=== PATIENT | male | born 1980 | race Two or more races ===

== ENCOUNTER 2016-11-05 13:24 | Emergency (ER) | payer MEDICAID ==
[~2016-11-05] VITALS: Ht 182.9 cm; Wt 106.6 kg
[2016-11-05 15:19] LABS: Albumin 3.8 g/dL (3.4-5.0); BUN/Creatinine Ratio 22.2; Calcium 8.7 mg/dL (8.5-10.1); Potassium 4.1 mmol/L (3.5-5.1)
[2016-11-05 15:22] LABS: Bilirubin, Total 0.3 mg/dL (0.2-1.0); Total Protein 7.3 g/dL (6.4-8.2)
[2016-11-05 15:33] LABS: Basophils % (auto) 0.3 % (0.0-2.0); Eosinophils # (auto) 0.1 uL; Eosinophils % (auto) 0.9 % (0.0-7.0); Lymphocytes # (auto) 1.9 uL; Lymphocytes % (auto) 16.3 % (10.0-50.0); Monocytes # (auto) 0.8 uL; Monocytes % (auto) 6.5 % (0.0-12.0); Neutrophils # (auto) 8.8 uL; White Blood Cell 11.6 10^3/uL (4.4-10.8)
[2016-11-05 15:34] LABS: Basophils # (auto) 0 uL; Hematocrit 43.4 % (41.0-53.0); Hemoglobin 14.7 g/dL (13.5-17.5); Mean Corpuscular Hemoglobin 28.5 pg (28.0-32.0); Mean Corpuscular Volume 83.9 fL (80.0-100.0); Mean Platelet Volume 8.4 fL (7.4-10.4); Platelet Count (auto) 307 10^3/uL (140-450); Red Cell Distribution Width 14.8 % (11.6-16.0)
[2016-11-05] MEDS ORDERED: cefTRIAXone W LIDOCAINE 1 GM IM IM ONE (15:45)
[2016-11-05] MEDS ORDERED: cefTRIAXone SOD 1,000 MG VL IM ONE (16:15)
[2016-11-05] MEDS ORDERED: LIDOCAINE 1% HCL (LOCAL ANESTH.) INJ 20ML MDV IJ ONE (16:15)
[2016-11-05 16:38] VITALS: BP 125/80
== END 2016-11-05 16:44 | disposition home or self-care (01) ==
LOC: ER 13:24
DX: K58.9 Irritable bowel syndrome, unspecified (principal); Z83.3 Family history of diabetes mellitus
CPT/HCPCS: 36415; 71020; 74176; 80053; 83690; 85025; 96372; 99285; J0696; J2001

== ENCOUNTER 2016-11-22 13:59 | Emergency (ER) | payer MEDICAID ==
[~2016-11-22] VITALS: Ht 182.9 cm; Wt 106.6 kg
[2016-11-22 14:06] VITALS: BP 102/81
[2016-11-22] MEDS ORDERED: PROPARACAINE HCL 0.5% OPTH(EYE) SOL 15ML OP ONE (15:00)
[2016-11-22] MEDS ORDERED: FLUORESCEIN SOD 1 MG TEST STRIP RIGHTEYE ONE (15:00)
[2016-11-22] MEDS ORDERED: TETRACAINE HCL 0.5% OPTH(EYE) SOLN 4ML RIGHTEYE ONE (15:15)
== END 2016-11-22 15:35 | disposition home or self-care (01) ==
LOC: ER 14:00
DX: T15.01XA Foreign body in cornea, right eye, initial encounter (principal); Z90.89 Acquired absence of other organs; X58.XXXA Exposure to other specified factors, initial encounter; Y93.89 Activity, other specified; Y99.0 Civilian activity done for income or pay; Y92.69 Other specified industrial and construction area as the place of occurrence of the external cause
CPT/HCPCS: 65220

== ENCOUNTER 2021-04-10 17:18 | Emergency (ER) | payer MEDICAID ==
[~2021-04-10] VITALS: Ht 182.9 cm; Wt 99.8 kg
[2021-04-10 18:36] VITALS: BP 109/45
[2021-04-10] MEDS ORDERED: KETOROLAC TROMETH 60MG/2ML VIAL IM ONE (19:00)
[2021-04-10] MEDS ORDERED: METHOCARBAMOL 500 MG TAB PO ONE (19:00)
[2021-04-10] MEDS ORDERED: ALPRAZolam 0.25 MG TAB PO ONE (19:00)
== END 2021-04-10 20:50 | disposition home or self-care (01) ==
LOC: ER 17:18
DX: S70.01XA Contusion of right hip, initial encounter (principal); W18.09XA Striking against other object with subsequent fall, initial encounter; Y93.89 Activity, other specified; Y92.89 Other specified places as the place of occurrence of the external cause; Y99.8 Other external cause status
CPT/HCPCS: 72100; 72170; 96372; 99284; J1885

== ENCOUNTER 2021-10-31 14:37 | Emergency (ER) | payer MEDICAID ==
[~2021-10-31] VITALS: Ht 182.9 cm; Wt 108.9 kg
[2021-10-31 14:38] VITALS: BP 131/85
[2021-10-31] MEDS ORDERED: KETOROLAC TROMETH 30 MG/ML 1ML VIAL IV ONE (15:15)
[2021-10-31] MEDS ORDERED: SODIUM CHLORIDE 0.9% 1,000 ML IVB ONE (15:15)
[2021-10-31 15:43] LABS: Basophils # (auto) 0.1 10 ^3/uL (0-0.2); Basophils % (auto) 1.1 % (0.0-2.0); Eosinophils # (auto) 0.1 10 ^3/uL (0-0.8); Eosinophils % (auto) 1.1 % (0.0-7.0); Hematocrit 42.8 % (41.0-53.0); Hemoglobin 14.5 g/dL (13.5-17.5); Lymphocytes # (auto) 2.1 10 ^3/uL (0.4-5.4); Lymphocytes % (auto) 34.8 % (10.0-50.0); Mean Corpuscular Hemoglobin 28.6 pg (28.0-32.0); Mean Corpuscular Volume 84.2 fL (80.0-100.0); Monocytes # (auto) 0.6 10 ^3/uL (0-1.3); Monocytes % (auto) 9.6 % (0.0-12.0); Neutrophils # (auto) 3.2 10 ^3/uL (1.6-8.6); Neutrophils % (auto) 53.4 % (37.0-80.0); Nucleated Red Blood Cells % 0.2 %; Red Blood Cells 5.09 10^6/uL (4.5-5.90); Red Cell Distribution Width 14.5 % (11.8-14.3)
[2021-10-31 16:00] LABS: Albumin 3.9 g/dL (3.4-5.0); Calcium 8.8 mg/dL (8.5-10.1); Potassium 3.6 mmol/L (3.5-5.1)
[2021-10-31 16:03] LABS: Bilirubin, Total 0.5 mg/dL (0.2-1.0); Total Protein 7.4 g/dL (6.4-8.2)
[2021-10-31 16:44] LABS: Urine WBC None Seen /hpf (0 - 3)
[2021-10-31 16:52] LABS: Urine Bacteria FEW /hpf (None Seen); Urine Blood Negative /uL (Negative)
[2021-10-31] MEDS ORDERED: TRAM-297 PO (17:34)
== END 2021-10-31 18:31 | disposition home or self-care (01) ==
LOC: ER 14:37
DX: M54.9 Dorsalgia, unspecified (principal); Z90.49 Acquired absence of other specified parts of digestive tract
CPT/HCPCS: 36415; 74176; 80053; 81001; 83690; 85025